=== PATIENT | male | born 1975 | race Caucasian/White ===

== ENCOUNTER 2019-02-12 12:14 | Outpatient (CLI) | payer OTHER ==
[2019-02-12] MEDS ORDERED: OXYC-302 PO (12:49)
[2019-02-12] MEDS ORDERED: testosterone cream TD (13:03)
[2019-02-12 14:03] LABS: BASOPHILS # (AUTO) 0.05 x10^3/uL (0-0.1); BASOPHILS % (AUTO) 1 % (0-1); EOSINOPHILS # (AUTO) 0.24 x10^3/uL (0-0.4); EOSINOPHILS % (AUTO) 3 % (1-7); LYMPHOCYTES # (AUTO) 2.91 x10^3/uL (1-3.4); LYMPHOCYTES % (AUTO) 37 % (22-44); MD NO; MEAN CORPUSCULAR HEMOGLOBIN 31.1 pg (27.5-34.5); MEAN CORPUSCULAR HGB CONC 33.9 g/dL (33.2-36.2); MEAN CORPUSCULAR VOLUME 91.7 fL (81-97); MEAN PLATELET VOLUME 8.5 fL (7.4-10.4); MONOCYTES # (AUTO) 0.59 x10^3/uL (0.2-0.8); MONOCYTES % (AUTO) 8 % (2-9); NEUTROPHILS # (AUTO) 4.14 x10^3/uL (1.8-6.8); NEUTROPHILS % (AUTO) 52 % (42-75); PLATELET COUNT 241 x10^3/uL (130-400); RED BLOOD COUNT 4.77 x10^6/uL (4.38-5.82); RED CELL DISTRIBUTION WIDTH 13.1 % (9.4-14.8)
[2019-02-12 14:04] LABS: MICROSCOPIC NOT IND
[2019-02-12 14:07] LABS: CULTURE INDICATED? NO
[2019-02-12 14:12] LABS: ALBUMIN 4.2 g/dL (3.4-5.0); ANION GAP 5 mmol/L (5-15); CHLORIDE 105 mmol/L (98-107)
[2019-02-12 14:15] LABS: INTERNATIONAL NORMALIZED RATIO 1.05 (0.93-1.1)
[2019-02-12 14:16] LABS: ALANINE AMINOTRANSFERASE 33 U/L (12-78); ALKALINE PHOSPHATASE 72 U/L (45-117); BILIRUBIN,TOTAL 1.6 mg/dL (0.2-1.0); TOTAL PROTEIN 7.9 g/dL (6.4-8.2)
== END 2019-02-12 23:59 | disposition home or self-care (01) ==
LOC: STAR 12:14
PROVIDERS: ATTEND Neurological Surgery
DX: Z01.818 Encounter for other preprocedural examination (principal); M48.061 Spinal stenosis, lumbar region without neurogenic claudication; M51.36 Other intervertebral disc degeneration, lumbar region
CPT/HCPCS: 36415; 71046; 80053; 81003; 85025; 85610; 85730; 93005

== ENCOUNTER 2019-02-26 05:11 | Inpatient (IN) | payer OTHER ==
[~2019-02-26] VITALS: Ht 170.2 cm; Wt 115.0 kg
[~2019-02-26 05:11] MED LIST: OXYC-302 PO; testosterone cream TD
[2019-02-26] MEDS ORDERED: LACTATED RINGERS 1,000 ML IV SCH (06:01)
[2019-02-26 06:05] VITALS: BP 136/88
[2019-02-26] MEDS ORDERED: HEPARIN 1,000 UNITS/ML, 30ML ONE (06:11)
[2019-02-26] MEDS ORDERED: BUPIVACAINE/PF 0.5% ONE (06:11)
[2019-02-26] MEDS ORDERED: EPINEPHRINE 1 MG/ML, 1ML ONE (06:12)
[2019-02-26] MEDS ORDERED: THROMBIN 5,000 UNIT VIAL TP ONE (06:12)
[2019-02-26] MEDS ORDERED: BACITRACIN 50,000 UNIT ONE (06:12)
[2019-02-26] MEDS ORDERED: LIDOCAINE-MPF 1%, 2ML INFIL ONE (06:30)
[2019-02-26] MEDS ORDERED: GABAPENTIN 300 MG CAPSULE PO ONE (06:30)
[2019-02-26] MEDS ORDERED: ACETAMINOPHEN 500 MG TABLET PO ONE (06:30)
[2019-02-26] MEDS ORDERED: FENTANYL PF 250 MCG/5ML ONE ×2 (06:34→07:41)
[2019-02-26] MEDS ORDERED: MIDAZOLAM 1 MG/ML, 2ML ONE (06:34)
[2019-02-26] MEDS ORDERED: PHENYLEPHRINE 10 MG/ML ONE (06:35)
[2019-02-26] MEDS ORDERED: MEPERIDINE/PF 25MG/ML,1ML IVPush PRN (07:00)
[2019-02-26] MEDS ORDERED: HYDROmorphone 2 MG/ML, 1ML IVPush PRN (07:00)
[2019-02-26] MEDS ORDERED: ONDANSETRON 2MG/ML, 2ML IV PRN (07:00)
[2019-02-26] MEDS ORDERED: OXYcodone 5 MG/5 ML ORAL.SOL UDC PO PRN ×2 (07:00→10:00)
[2019-02-26] MEDS ORDERED: LABETALOL 5MG/ML, 20ML IV PRN (07:00)
[2019-02-26] MEDS ORDERED: MORPHINE SULFATE 4 MG/ML, 1ML IVPush PRN (07:00)
[2019-02-26] MEDS ORDERED: hydrALAzine 20 MG/ML, 1ML IV PRN (07:00)
[2019-02-26] MEDS ORDERED: PROPOFOL 10 MG/ML, 20ML ONE (07:41)
[2019-02-26] MEDS ORDERED: NEOSTIGMINE 1 MG/ML, 10ML ONE (07:41)
[2019-02-26] MEDS ORDERED: GLYCOPYRROLATE 0.2MG/1ML, 5ML ONE (07:41)
[2019-02-26] MEDS ORDERED: CEFAZOLIN 1,000 MG ONE (07:41)
[2019-02-26] MEDS ORDERED: ROCURONIUM 10MG/ML,5ML ONE (07:41)
[2019-02-26] MEDS ORDERED: HEPARIN 1,000 UNITS/ML, 30ML IVPB ONE (07:49)
[2019-02-26] MEDS ORDERED: SUGAMMADEX 200 MG/2 ML IVPush ONE (09:29)
[2019-02-26] MEDS ORDERED: METHOCARBAMOL 1,000 MG in DEXTROSE 5% 100 ML IV ONE (10:00)
[2019-02-26] MEDS ORDERED: OXYcodone 5 MG/5 ML ORAL.SOL UDC ONE (10:08)
[2019-02-26] MEDS ORDERED: HYDROmorphone 1 MG/ML, 1ML VIAL ONE ×2 (10:08→10:43)
[2019-02-26] MEDS ORDERED: FENTANYL PF 100 MCG/2ML ONE (10:08)
[2019-02-26] MEDS: FENTANYL PF 100 MCG/2ML IV PRN ×2 (10:14→10:19)
[2019-02-26] MEDS: HYDROmorphone 2 MG/ML, 1ML IVPush PRN ×4 (10:15→22:07)
[2019-02-26 12:30] VITALS: BP 122/75
[2019-02-26] MEDS ORDERED: HYDROmorphone 2MG TABLET PO PRN (14:00)
[2019-02-26] MEDS ORDERED: HYDROmorphone 2MG TABLET ONE (14:04)
[2019-02-26] MEDS ORDERED: DIPHENHYDRAMINE 25 MG CAPSULE PO PRN (14:30)
[2019-02-26] MEDS ORDERED: BISACODYL 10 MG SUPP PR PRN (14:30)
[2019-02-26] MEDS ORDERED: DIPHENHYDRAMINE 50 MG/ML, 1ML IVPush PRN (14:30)
[2019-02-26] MEDS ORDERED: DIPHENHYDRAMINE 50 MG/ML, 1ML IM PRN (14:30)
[2019-02-26] MEDS ORDERED: MAGNESIUM HYDROXIDE 8%, 30ML UDC PO PRN (14:30)
[2019-02-26] MEDS: ONDANSETRON 2MG/ML, 2ML IV PRN ×2 (14:46→21:50)
[2019-02-26] MEDS: OXYcodone/APAP 5/325MG TABLET PO PRN ×2 (15:42→21:48)
[2019-02-26] MEDS: D5%-0.9% NACL+KCL 20MEQ 1,000 ML IV SCH (15:50)
[2019-02-26] MEDS: CEFAZOLIN PMX 1GM/50ML 50 ML IVPB SCH ×2 (15:51→22:54)
[2019-02-26] MEDS ORDERED: HYDROmorphone 1 MG/ML, 1ML INJ IV PRN (16:30)
[2019-02-26] MEDS ORDERED: HYDROmorphone 2 MG/ML, 1ML ONE (18:33)
[2019-02-26 19:24] VITALS: BP 113/67
[2019-02-27 00:20] VITALS: BP 121/74
[2019-02-27] MEDS: PROMETHAZINE 25 MG/ML, 1ML IM PRN (02:03)
[2019-02-27] MEDS: D5%-0.9% NACL+KCL 20MEQ 1,000 ML IV SCH ×2 (02:03→19:31)
[2019-02-27] MEDS: HYDROmorphone 2 MG/ML, 1ML IVPush PRN ×5 (03:45→14:37)
[2019-02-27 03:47] VITALS: BP 118/68
[2019-02-27] MEDS ORDERED: BACITRACIN 50,000 UNIT ONE (06:28)
[2019-02-27] MEDS ORDERED: BUPIVACAINE/PF 0.5% ONE (06:28)
[2019-02-27] MEDS ORDERED: VANCOMYCIN 1,000 MG ONE (06:28)
[2019-02-27] MEDS ORDERED: EPINEPHRINE 1 MG/ML, 1ML ONE (06:28)
[2019-02-27] MEDS ORDERED: THROMBIN 5,000 UNIT VIAL TP ONE (06:28)
[2019-02-27 07:40] VITALS: BP 116/76
[2019-02-27] MEDS: TESTOSTERONE HOMETP SCH (08:40)
[2019-02-27] MEDS: SENNA/DOCUSATE TABLET PO SCH (08:40)
[2019-02-27] MEDS: ONDANSETRON 2MG/ML, 2ML IV PRN (08:59)
[2019-02-27] MEDS ORDERED: ONDANSETRON 2MG/ML, 2ML IV PRN (09:30)
[2019-02-27] MEDS ORDERED: DIAZEPAM 5 MG/ML, 2ML IVPush PRN (09:30)
[2019-02-27] MEDS ORDERED: FENTANYL PF 100 MCG/2ML IV PRN (09:30)
[2019-02-27] MEDS ORDERED: PROMETHAZINE 25 MG/ML, 1ML IV PRN (09:30)
[2019-02-27] MEDS ORDERED: LABETALOL 5MG/ML, 20ML IV PRN (09:30)
[2019-02-27] MEDS ORDERED: MEPERIDINE/PF 25MG/ML,1ML IVPush PRN (09:30)
[2019-02-27] MEDS ORDERED: OXYcodone 5 MG/5 ML ORAL.SOL UDC PO PRN (09:30)
[2019-02-27] MEDS ORDERED: hydrALAzine 20 MG/ML, 1ML IV PRN (09:30)
[2019-02-27] MEDS ORDERED: MIDAZOLAM 1 MG/ML, 2ML ONE (09:50)
[2019-02-27] MEDS ORDERED: FENTANYL PF 250 MCG/5ML ONE (09:50)
[2019-02-27] MEDS ORDERED: OxyconTIN ER 20 MG TAB.ER PO ONE (10:00)
[2019-02-27] MEDS ORDERED: ACETAMINOPHEN 500 MG TABLET PO ONE (10:00)
[2019-02-27] MEDS ORDERED: FAMOTIDINE 20 MG TABLET PO ONE (10:00)
[2019-02-27] MEDS ORDERED: GABAPENTIN 300 MG CAPSULE PO ONE (10:00)
[2019-02-27] MEDS ORDERED: DEXAMETHASONE 4 MG/ML, 1ML ONE (11:33)
[2019-02-27] MEDS ORDERED: CEFAZOLIN 1,000 MG ONE (11:50)
[2019-02-27] MEDS ORDERED: PROPOFOL 100 ML ONE (12:26)
[2019-02-27] MEDS ORDERED: PROPOFOL 10 MG/ML, 20ML ONE ×2 (12:26)
[2019-02-27] MEDS ORDERED: ROCURONIUM 10MG/ML,5ML ONE (12:27)
[2019-02-27] MEDS ORDERED: ONDANSETRON 2MG/ML, 2ML ONE (13:15)
[2019-02-27 13:32] VITALS: BP 113/61
[2019-02-27] MEDS ORDERED: METHOCARBAMOL 1,000 MG in DEXTROSE 5% 100 ML IV ONE (14:00)
[2019-02-27] MEDS ORDERED: HYDROmorphone 1 MG/ML, 1ML VIAL ONE (14:11)
[2019-02-27] MEDS ORDERED: FENTANYL PF 100 MCG/2ML ONE (14:11)
[2019-02-27] MEDS ORDERED: HYDROmorphone 2 MG/ML, 1ML IM PRN (16:00)
[2019-02-27] MEDS: OXYcodone/APAP 10/325MG TABLET PO PRN ×2 (17:27→21:38)
[2019-02-27] MEDS: CEFAZOLIN PMX 1GM/50ML 50 ML IVPB SCH (19:31)
[2019-02-27 20:21] VITALS: BP 151/89
[2019-02-27] MEDS: METHOCARBAMOL 750 MG TABLET PO PRN (20:59)
[2019-02-27 23:59] VITALS: BP 121/73
[2019-02-28] MEDS: OXYcodone/APAP 10/325MG TABLET PO PRN ×4 (02:32→23:01)
[2019-02-28] MEDS: CEFAZOLIN PMX 1GM/50ML 50 ML IVPB SCH (03:16)
[2019-02-28 04:52] VITALS: BP_SYST 120; BP_SYST 87; BP_DIAS 52; BP_DIAS 75
[2019-02-28] MEDS: D5%-0.9% NACL+KCL 20MEQ 1,000 ML IV SCH ×3 (05:30→21:55)
[2019-02-28] MEDS: METHOCARBAMOL 750 MG TABLET PO PRN ×2 (05:53→20:05)
[2019-02-28] MEDS: ENOXAPARIN 40 MG/0.4 ML SQ SCH (05:53)
[2019-02-28 06:06] LABS: MEAN CORPUSCULAR HEMOGLOBIN 31.9 pg (27.5-34.5); MEAN CORPUSCULAR VOLUME 93.8 fL (81-97); MEAN PLATELET VOLUME 9.4 fL (7.4-10.4); PLATELET COUNT 192 x10^3/uL (130-400); RED BLOOD COUNT 4.25 x10^6/uL (4.38-5.82); RED CELL DISTRIBUTION WIDTH 13.9 % (9.4-14.8)
[2019-02-28 06:12] LABS: ANION GAP 4 mmol/L (5-15); CHLORIDE 103 mmol/L (98-107); CREATININE 0.84 mg/dL (0.7-1.3)
[2019-02-28 06:24] LABS: BASOPHILS # (AUTO) 0.11 x10^3/uL (0-0.1); BASOPHILS % (AUTO) 1 % (0-1); EOSINOPHILS # (AUTO) 0.01 x10^3/uL (0-0.4); EOSINOPHILS % (AUTO) 0 % (1-7); LYMPHOCYTES # (AUTO) 1.31 x10^3/uL (1-3.4); LYMPHOCYTES % (AUTO) 9 % (22-44); MD SCAN; MONOCYTES # (AUTO) 0.77 x10^3/uL (0.2-0.8); MONOCYTES % (AUTO) 5 % (2-9); NEUTROPHILS # (AUTO) 12.58 x10^3/uL (1.8-6.8); NEUTROPHILS % (AUTO) 85 % (42-75)
[2019-02-28] MEDS: TESTOSTERONE HOMETP SCH (07:36)
[2019-02-28] MEDS: SENNA/DOCUSATE TABLET PO SCH (07:36)
[2019-02-28 07:45] VITALS: BP 127/80
[2019-02-28] MEDS ORDERED: MAGNESIUM CITRATE 300ML ORAL SOL PO PRN (08:30)
[2019-02-28] MEDS: PROMETHAZINE 25 MG/ML, 1ML IM PRN (10:23)
[2019-02-28 13:44] VITALS: BP 166/90
[2019-02-28] MEDS: ONDANSETRON 2MG/ML, 2ML IV PRN (16:28)
[2019-02-28 18:40] VITALS: BP 132/76
[2019-03-01] MEDS: PROMETHAZINE 25 MG/ML, 1ML IM PRN (01:06)
[2019-03-01 03:57] VITALS: BP 148/94
[2019-03-01 05:31] LABS: BASOPHILS # (AUTO) 0.15 x10^3/uL (0-0.1); BASOPHILS % (AUTO) 1 % (0-1); EOSINOPHILS % (AUTO) 0 % (1-7); LYMPHOCYTES # (AUTO) 1.49 x10^3/uL (1-3.4); LYMPHOCYTES % (AUTO) 11 % (22-44); MD NO; MEAN CORPUSCULAR HEMOGLOBIN 31.6 pg (27.5-34.5); MEAN CORPUSCULAR HGB CONC 33.6 g/dL (33.2-36.2); MEAN CORPUSCULAR VOLUME 93.9 fL (81-97); MEAN PLATELET VOLUME 9.1 fL (7.4-10.4); MONOCYTES # (AUTO) 1.01 x10^3/uL (0.2-0.8); MONOCYTES % (AUTO) 8 % (2-9); NEUTROPHILS # (AUTO) 10.38 x10^3/uL (1.8-6.8); NEUTROPHILS % (AUTO) 80 % (42-75); PLATELET COUNT 198 x10^3/uL (130-400); RED BLOOD COUNT 4.04 x10^6/uL (4.38-5.82); RED CELL DISTRIBUTION WIDTH 13.5 % (9.4-14.8)
[2019-03-01] MEDS: ENOXAPARIN 40 MG/0.4 ML SQ SCH (05:32)
[2019-03-01 05:40] LABS: CHLORIDE 103 mmol/L (98-107)
[2019-03-01 05:51] LABS: ANION GAP 6 mmol/L (5-15); CALCIUM 8.6 mg/dL (8.5-10.1); CREATININE 0.64 mg/dL (0.7-1.3)
[2019-03-01 06:45] VITALS: BP 145/91
[2019-03-01] MEDS: SENNA/DOCUSATE TABLET PO SCH (09:00)
[2019-03-01] MEDS: TESTOSTERONE HOMETP SCH (09:00)
[2019-03-01] MEDS: KETOROLAC 30 MG/1 ML IVPush SCH ×3 (09:41→21:07)
[2019-03-01] MEDS: D5%-0.9% NACL+KCL 20MEQ 1,000 ML IV SCH ×2 (11:20→21:30)
[2019-03-01 12:28] VITALS: BP 134/82
[2019-03-01] MEDS: OXYcodone/APAP 5/325MG TABLET PO PRN (14:21)
[2019-03-01] MEDS: OXYcodone/APAP 10/325MG TABLET PO PRN (18:20)
[2019-03-01 19:50] VITALS: BP 136/79
[2019-03-02 01:52] VITALS: BP 132/85
[2019-03-02] MEDS: OXYcodone/APAP 10/325MG TABLET PO PRN ×3 (04:37→14:50)
[2019-03-02] MEDS: KETOROLAC 30 MG/1 ML IVPush SCH ×2 (04:45→10:14)
[2019-03-02 05:20] LABS: CHLORIDE 102 mmol/L (98-107)
[2019-03-02 05:23] LABS: BASOPHILS # (AUTO) 0.04 x10^3/uL (0-0.1); BASOPHILS % (AUTO) 1 % (0-1); EOSINOPHILS # (AUTO) 0.12 x10^3/uL (0-0.4); EOSINOPHILS % (AUTO) 1 % (1-7); LYMPHOCYTES # (AUTO) 1.63 x10^3/uL (1-3.4); LYMPHOCYTES % (AUTO) 19 % (22-44); MD NO; MEAN CORPUSCULAR HEMOGLOBIN 31.5 pg (27.5-34.5); MEAN CORPUSCULAR HGB CONC 34.4 g/dL (33.2-36.2); MEAN CORPUSCULAR VOLUME 91.5 fL (81-97); MONOCYTES # (AUTO) 0.63 x10^3/uL (0.2-0.8); MONOCYTES % (AUTO) 7 % (2-9); NEUTROPHILS # (AUTO) 6.15 x10^3/uL (1.8-6.8); NEUTROPHILS % (AUTO) 72 % (42-75); PLATELET COUNT 212 x10^3/uL (130-400); RED BLOOD COUNT 3.96 x10^6/uL (4.38-5.82); RED CELL DISTRIBUTION WIDTH 13.3 % (9.4-14.8)
[2019-03-02 05:25] LABS: ANION GAP 7 mmol/L (5-15); CALCIUM 8.4 mg/dL (8.5-10.1); CREATININE 0.77 mg/dL (0.7-1.3)
[2019-03-02] MEDS: ENOXAPARIN 40 MG/0.4 ML SQ SCH (07:05)
[2019-03-02 07:28] VITALS: BP 129/80
[2019-03-02] MEDS: D5%-0.9% NACL+KCL 20MEQ 1,000 ML IV SCH (07:30)
[2019-03-02] MEDS: TESTOSTERONE HOMETP SCH (08:06)
[2019-03-02] MEDS: SENNA/DOCUSATE TABLET PO SCH (08:07)
[2019-03-02 12:12] VITALS: BP 135/83
[2019-03-02] MEDS ORDERED: OXYC-302 PO (14:00)
[2019-03-02] MEDS ORDERED: METH750T2 PO (14:05)
[2019-03-02] MEDS ORDERED: OXYcodone/APAP 10/325MG TABLET ONE (14:45)
== END 2019-03-02 14:42 | disposition home or self-care (01) | DRG 454 ==
LOC: ORIP 05:11 → 4NE 11:38 → DCLOUNGE 03-02 14:25
PROVIDERS: ADMIT Neurological Surgery; ATTEND Neurological Surgery
PROC: 0SG30A0 Fusion of Lumbosacral Joint with Interbody Fusion Device, Anterior Approach, Anterior Column, Open Approach (ICD-10-PCS; 2019-02-26)
PROC: 0SB40ZZ Excision of Lumbosacral Disc, Open Approach (ICD-10-PCS; 2019-02-26)
PROC: 0SG00A0 Fusion of Lumbar Vertebral Joint with Interbody Fusion Device, Anterior Approach, Anterior Column, Open Approach (ICD-10-PCS; principal; 2019-02-26 07:00)
PROC: 0SG0071 Fusion of Lumbar Vertebral Joint with Autologous Tissue Substitute, Posterior Approach, Posterior Column, Open Approach (ICD-10-PCS; 2019-02-27)
PROC: 0SG3071 Fusion of Lumbosacral Joint with Autologous Tissue Substitute, Posterior Approach, Posterior Column, Open Approach (ICD-10-PCS; 2019-02-27)
PROC: 01NB0ZZ Release Lumbar Nerve, Open Approach (ICD-10-PCS; 2019-02-27)
PROC: 01NR0ZZ Release Sacral Nerve, Open Approach (ICD-10-PCS; 2019-02-27)
PROC: 4A11X4G Monitoring of Peripheral Nervous Electrical Activity, Intraoperative, External Approach (ICD-10-PCS; 2019-02-27)
DX: M48.07 Spinal stenosis, lumbosacral region (principal); G95.29 Other cord compression; E66.01 Morbid (severe) obesity due to excess calories; I10 Essential (primary) hypertension; F43.10 Post-traumatic stress disorder, unspecified; G89.29 Other chronic pain; K59.00 Constipation, unspecified; M43.17 Spondylolisthesis, lumbosacral region; M53.2X7 Spinal instabilities, lumbosacral region; M48.062 Spinal stenosis, lumbar region with neurogenic claudication; M51.17 Intervertebral disc disorders with radiculopathy, lumbosacral region; Z68.39 Body mass index [BMI] 39.0-39.9, adult
CPT/HCPCS: 36415; 72100; 74018; J3490; S0020; 72131; 80048; 85025; 86850; 86900; C1713; C1729; G0378; J0171; J0690; J1100; J1170; J1644; J1650; J1885; J2250; J2405; J2550; J2704; J2710; J3010; J3370; A4648; C1762; J1200; J2370; J2800; J3480; J7120